=== PATIENT | female | born 1970 | race American Indian/Alaskan Native ===

== ENCOUNTER → 2023-10-01 10:38 | Outpatient (CLI) | payer OTHER, SELFPAY ==
[2023-10-01 13:18] LABS: D Dimer 277 ng/ml (<500)
== END ==
PROVIDERS: Referring Provider Registered Nurse; Visit Provider Registered Nurse
DX: M77.9 Enthesopathy, unspecified (principal)
CPT/HCPCS: 36415; 85379

== ENCOUNTER → 2023-10-07 10:01 | Outpatient (CLI) | payer OTHER, SELFPAY ==
--- NOTE | 2023-10-07 | DI.RAD.S_ITS ---
PROCEDURE: XR TIBIA FUBULA RT 2V INDICATIONS: RIGHT LEG PAIN TECHNIQUE: 2 views of the tibia and fibula were acquired. COMPARISON: None. FINDINGS: Bones: No fractures or dislocations. No suspicious bony lesions. Findings at the knee demonstrate remote ACL repair. Soft tissues: No suspicious soft tissue calcifications or masses. IMPRESSION: No acute bony abnormality. Dictated by: Yariel Singh M.D. on 10/07/2023 at 11:06 Approved by: Yariel Singh M.D. on 10/07/2023 at 11:07
== END ==
LOC: RAD 10:02
PROVIDERS: Referring Provider Family Medicine; Visit Provider Family Medicine
DX: M79.661 Pain in right lower leg (principal)
CPT/HCPCS: 73590